=== PATIENT | female | born 1990 | race Two or more races ===

== ENCOUNTER 2017-02-09 21:25 | Inpatient (IN) | payer OTHER ==
[2017-02-09] MEDS ORDERED: BUTORPHANOL TARTRATE 1 MG/ML VIAL IVPB ONE (23:37)
[2017-02-09] MEDS ORDERED: PROMETHAZINE HCL 25 MG/1 ML VIAL IVPUSH ONE (23:37)
[2017-02-09] MEDS ORDERED: DEXTROSE 5%-LACTATED RINGERS 1,000 ML IV SCH (23:45)
--- NOTE | 2017-02-09 23:55 | HP ---
Past Medical History - Primary Care Physician PCP:: Caterina Torrez - Admission Chief Complaint: 26 yrs 39.6/7 weeks admitted in labor, SROM at 3.00pm, , onset of UC since 7.00pm History of Present Illness: PNC at , [facility]. Wt gain 42 lbs work Up : A Neg, Rhogam taken on 11/21/16, Rpr nr. Rubella pos, Hbsag neg, Quantiferon neg, 1 Hr Gtt 118, Hiv neg, GBS neg, gc/ct neg, pap NILM, Sickle neg, CF neg NT sreen & modified Sequential neg Seen by MFM serial growth sono reviewed. 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 Weeks Gestation by Dates: 40.2 ...EDC by Dates: 02/07/17 ...EDC by Sono: 02/10/17 (39.6) Heme/Onc: No: Sickle Cell Trait Infectious Disease: No: AIDS, HIV, STD's, Tuberculosis Psych: No: Addictions, Anxiety, Bipolar, Depression - Past Surgical History Past Surgical History: Yes: None Hx Myomectomy: No Hx Transabdominal Cerclage: No - Smoking History Smoking history: Never smoked - Alcohol/Substance Use Hx Alcohol Use: No History of Substance Use: reports: None Home Medications - Allergies Allergies/Adverse Reactions: Allergies Allergy/AdvReac Type Severity Reaction Status Date / Time No Known Allergies Allergy Verified 11/21/16 13:23 - Home Medications Home Medications: Ambulatory Orders NK [No Known Home Medication] 11/21/16 Physical Exam - Maternity Vital Signs: t 99.0 Selected Entries 02/09/17 23:00 Temperature 98.9 F Pulse Rate 105 H Blood Pressure 115/82 Weight 152 lb Constitutional: Yes: Well Nourished, Moderate Distress Eyes: Yes: WNL HENT: Yes: WNL, Normocephalic Neck: Yes: WNL, Trachea Midline Cardiovascular: Yes: WNL, Regular Rate and Rhythm Lungs: Clear to auscultation Breast(s): Yes: WNL - Abdominal Exam/OB Fundal Height: 40 Number of Fetuses: Single Presentation: Vertex Contractions: Yes Regularity: Irregular (4-5) Intensity: Moderate Heart Rate (range): 150-180 Heart Rate Location: [facility] Category: I Accelerations: Uniform Decelerations: None - Vaginal Exam/OB Vaginal Bleediing: Bloody Show Speculum Exam: No Dilatation (cm): 4- Effacement (%): 90 Amniotic Membrane Status: Ruptured (srom 15.00hr 02/09/2017) Nitrazine Test: Positive Amniotic Fluid: Yes: Blood Stained Presentation: Double Footling Breech (exam at 23.00hr 02/09/17) Station: -1 - Physical Exam Musculoskeletal: Yes: WNL Extremities: Yes: WNL. No: Calf Tenderness Edema: Yes Edema: LLE: 1+, RLE: 1+ Deep Tendon Reflex Grade: Normal +2 ...Motor Strength: WNL Psychiatric: Yes: WNL, Alert, Oriented - Labs Lab Results: Laboratory Tests 02/09/17 02/09/17 02/09/17 23:30 23:30 23:30 WBC 14.7 H D Hgb 13.5 Hct 40.2 Plt Count 155 Neutrophils % 84.0 H Lymphocytes % 9.1 D Monocytes % 6.6 Eosinophils % 0.2 D INR 0.99 PTT (Actin FS) 26.1 L Sodium 139 Potassium 4.0 Chloride 102 Carbon Dioxide 25 BUN 8 Creatinine 0.5 L D Random Glucose 83 Blood Type Antibody Screen 02/09/17 23:30 WBC Hgb Hct Plt Count Neutrophils % Lymphocytes % Monocytes % Eosinophils % INR PTT (Actin FS) Sodium Potassium Chloride Carbon Dioxide BUN Creatinine Random Glucose Blood Type A NEGATIVE Antibody Screen Negative Problem List - Problems (1) 40 weeks gestation of Code(s): Z3A.40 - 40 WEEKS GESTATION OF (2) Labor established Code(s): EQK9184 - (3) SROM (spontaneous rupture of membranes) Code(s): LNT7531 - Assessment/Plan 26 yrs , 40 weeks iup srom, in early labor , GBS neg Plan trial of labor for vag delivery stadol + phenergan for labor analgesia pitocin augmentation prn
[2017-02-10 00:06] LABS: BASOPHIL 0.1 % (0-2.0); EOSINOPHIL 0.2 % (0-4.5); MCH 29.5 pg (25.7-33.7); MCHC 33.7 g/dl (32.0-36.0); MEAN CELL VOLUME 87.5 fl (80-96); MEAN PLT VOLUME 9.8 fl (7.5-11.1); PLATELET COUNT 155 K/MM3 (134-434); RDW 13.4 % (11.6-15.6); WHITE BLOOD COUNT 14.7 K/mm3 (4.0-10.0)
[2017-02-10 00:18] LABS: INR 0.99 (0.82-1.09); PROTHROMBIN TIME (PATIENT) 10.9 SEC (9.98-11.88)
[2017-02-10 00:20] LABS: ACTIVATED PTT 26.1 SECONDS (26.9-34.4)
[2017-02-10 00:25] LABS: ANION GAP 12 (8-16); CALCIUM 8.6 mg/dL (8.5-10.1); CO2 25 mmol/L (21-32); CREATININE 0.5 mg/dL (0.55-1.02); GLUCOSE,RANDOM 83 mg/dL (74-106)
[2017-02-10] MEDS ORDERED: OXYTOCIN 15 UNITS/ LR 250 ML 250 ML IVPB SCH (02:00)
[2017-02-10 02:05] VITALS: BMI 27.8
[2017-02-10] MEDS: oxyCODONE HCL 5 MG TABLET PO PRN (04:00)
[2017-02-10] MEDS ORDERED: D5W-LR W/ 20 UNITS OXYTOCIN 1,000 ML IV SCH (04:00)
[2017-02-10 04:08] LABS: ARTERIAL BLD GAS O2 SATURATION 38.9 % (90-98.9); ARTERIAL BLOOD GAS BASE EXCESS 0.6 meq/l (-2-2); ARTERIAL BLOOD GAS HCO3 27.9 meq/L (22-26); ARTERIAL BLOOD GAS pH 7.31 (7.35-7.45)
--- NOTE | 2017-02-10 04:41 | PN ---
Progress Note, Labor Vaginal Exam #1 Labor Exam Date: 02/10/17 Labor Exam Time: 03:20 Heart Rate (range): 120-140 Dilatation: 10 Effacement (%): 100 Amniotic Membrane Status: Ruptured Presentation: Vertex/Position Station: +2 Remarks: fhr cat-2 uc q 3-4 min 1.00AM stadol + phenrgan iv given 2.00AM pitocin augmentation started 3.20 pt encouraged to push Selected Entries 02/10/17 02/10/17 02:00 03:00 Temperature 98.5 F Pulse Rate 90 81 Blood Pressure 109/76 108/66
--- NOTE | 2017-02-10 04:47 | PN ---
Delivery - Delivery Vaginal Delivery: No Problems, Spontaneous Type of Anesthesia: Local Episiotomy/Laceration: Midline (episitomy sutured in layers with chr catgut #2/ 0 . sutures proximal to anus pr exam mucosa & sphincter intact) EBL (cc): 450 (bladder cathetrized 50 ml urine) Delivery, Single - Stages of Labor Date 1st Stage Initiatied: 02/09/17 Time 1st Stage Initiated: 19:00 Date 2nd Stage Initiated: 02/10/17 Time 2nd Stage Initiated: 03:20 Date of Delivery: 02/10/17 Time of Delivery: 03:43 Date Placenta Delivered: 02/10/17 Time Placenta Delivered: 03:50 Placenta: Yes: Spontaneous, Uterine Exploration - Condition of Gender: Male Weight: 7 lb 6 oz Position: Left, OA Total Hours ROM (Hrs/Mins): 12hrs 50 min - 1 Minute Total Score: 9 5 Minutes Total Score: 9 - Additional Information: terminal light meconium noted at the time of delivery, oral & nasal suction done at perineum Remarks - Remarks Remarks: 26yrs G1Po 40weeks srom, in labor, gbs neg pnc at [address] [place] [address] Intrapartum iv stadol + phenrgan given for labor analgesia intrapartum course uneventful
[2017-02-10] MEDS ORDERED: BENZOCAINE 20% 57 GM BOTTLE TP PRN (04:52)
[2017-02-10] MEDS ORDERED: BISACODYL 10 MG SUPP.RECT RC PRN (04:52)
[2017-02-10] MEDS ORDERED: METHYLERGONOVINE MALEATE 0.2 MG/1 ML AMP IM PRN (04:52)
[2017-02-10] MEDS ORDERED: WITCH HAZEL 50% (TUCKS) 40 PAD/JAR PAD TP PRN (04:52)
[2017-02-10] MEDS ORDERED: BENZOCAINE 28 GM HEMORRHOIDAL OINTMENT TP PRN (04:52)
[2017-02-10 06:20] LABS: VENOUS PH 7.38 (7.32-7.42)
[2017-02-10 06:22] LABS: LPM/O2% 21%; PT. ON O2? no; TYPE OF O2 room air
[2017-02-10] MEDS: PRENATAL VITAMINS W/ FOLIC ACID TABLET (FP) PO SCH (09:12)
[2017-02-10] MEDS: FERROUS SO4 325 MG TABLET (FP) PO SCH ×2 (09:12→17:28)
[2017-02-10] MEDS: DOCUSATE SODIUM 100 MG CAPSULE (FP) PO SCH ×2 (14:26→22:23)
[2017-02-10] MEDS: ACETAMINOPHEN 325 MG TABLET (FP) PO PRN (15:20)
[2017-02-10] MEDS: IBUPROFEN 600 MG TABLET (FP) PO PRN (15:21)
--- NOTE | 2017-02-11 06:14 | PN ---
Post Progress Note Post Day: 1 Type of Delivery: Vital Signs: Vital Signs Temperature 98.4 F 02/11/17 02:00 Pulse Rate 99 H 02/11/17 02:00 Respiratory Rate 18 02/11/17 02:00 Blood Pressure 126/84 02/11/17 02:00 O2 Sat by Pulse Oximetry (%) 96 02/10/17 04:30 Breast Exam: Yes: Soft Uterus: Yes: Fundus Firm Abdomen/GI: Yes: Abdomen soft Lochia: Yes: Rubra Lochia, amount: Small Extremities: Yes: Calves non-tender Perineum: Yes: Intact Activity: Ambulating - Labs Labs: CBC WBC 14.7 K/mm3 (4.0-10.0) H D 02/09/17 23:30 RBC 4.59 M/mm3 (3.60-5.2) 02/09/17 23:30 Hgb 13.5 GM/dL (10.7-15.3) 02/09/17 23:30 Hct 40.2 % (32.4-45.2) 02/09/17 23:30 MCV 87.5 fl (80-96) 02/09/17 23:30 MCH 29.5 pg (25.7-33.7) 02/09/17 23:30 MCHC 33.7 g/dl (32.0-36.0) 02/09/17 23:30 RDW 13.4 % (11.6-15.6) 02/09/17 23:30 Plt Count 155 K/MM3 (134-434) 02/09/17 23:30 MPV 9.8 fl (7.5-11.1) 02/09/17 23:30 Neutrophils % 84.0 % (42.8-82.8) H 02/09/17 23:30 Lymphocytes % 9.1 % (8-40) D 02/09/17 23:30 Monocytes % 6.6 % (3.8-10.2) 02/09/17 23:30 Eosinophils % 0.2 % (0-4.5) D 02/09/17 23:30 Basophils % 0.1 % (0-2.0) 02/09/17 23:30 Assessment/Plan as above oob reg diet cont care
[2017-02-11] MEDS: DOCUSATE SODIUM 100 MG CAPSULE (FP) PO SCH ×3 (06:41→21:01)
[2017-02-11] MEDS: ACETAMINOPHEN 325 MG TABLET (FP) PO PRN ×2 (06:43→19:17)
[2017-02-11] MEDS: IBUPROFEN 600 MG TABLET (FP) PO PRN (06:43)
[2017-02-11] MEDS: FERROUS SO4 325 MG TABLET (FP) PO SCH ×2 (07:55→17:16)
[2017-02-11 08:24] LABS: BASOPHIL 0.4 % (0-2.0); EOSINOPHIL 1.2 % (0-4.5); MCH 28.9 pg (25.7-33.7); MCHC 33.4 g/dl (32.0-36.0); MEAN CELL VOLUME 86.6 fl (80-96); MEAN PLT VOLUME 9.2 fl (7.5-11.1); NEUTROPHILS 80.6 % (42.8-82.8); PLATELET COUNT 140 K/MM3 (134-434); RDW 13.2 % (11.6-15.6); WHITE BLOOD COUNT 13.9 K/mm3 (4.0-10.0)
[2017-02-11] MEDS ORDERED: DIPHTH,PERTUSS(ACELL),TET 0.5 ML DISP.SYRIN IM ONE (10:00)
[2017-02-11] MEDS: PRENATAL VITAMINS W/ FOLIC ACID TABLET (FP) PO SCH (10:13)
[2017-02-11] MEDS: oxyCODONE HCL 5 MG TABLET PO PRN (19:17)
[2017-02-11] MEDS ORDERED: SENNOSIDES/DOCUSATE COMBO (SENNA PLUS) TABLET (UD) PO PRN (22:00)
[2017-02-12] MEDS: DOCUSATE SODIUM 100 MG CAPSULE (FP) PO SCH (06:30)
[2017-02-12] MEDS: FERROUS SO4 325 MG TABLET (FP) PO SCH (09:09)
[2017-02-12] MEDS: PRENATAL VITAMINS W/ FOLIC ACID TABLET (FP) PO SCH (09:09)
--- NOTE | 2017-02-12 09:48 | DS ---
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: Vital Signs Temperature 97.9 F 02/11/17 21:00 Pulse Rate 105 H 02/11/17 21:00 Respiratory Rate 20 02/11/17 21:00 Blood Pressure 124/79 02/11/17 21:00 O2 Sat by Pulse Oximetry (%) 96 02/10/17 04:30 Constitutional: Yes: Well Nourished Eyes: Yes: WNL HENT: Yes: WNL Neck: Yes: WNL Cardiovascular: Yes: WNL Respiratory: Yes: WNL Gastrointestinal: Yes: WNL ...Rectal Exam: Yes: WNL, Sphincter Tone Normal, Other (bm done) ....Post : Yes: Uterus firm, Uterus non-tender, Moderate lochia rubra ( perineum intact, epi wound healing , suture proximal to anus) Breast(s): Yes: WNL (BF, not engorged) Musculoskeletal: Yes: WNL Extremities: Yes: WNL. No: Calf Tenderness Edema: LLE: Trace, RLE: Trace Neurological: Yes: WNL, Alert, Oriented ...Motor Strength: WNL Psychiatric: Yes: WNL, Alert, Oriented Labs: CBC, BMP 02/11/17 07:50 02/09/17 23:30 Delivery - Delivery Vaginal Delivery: No Problems, Spontaneous Type of Anesthesia: Local Episiotomy/Laceration: Midline EBL (cc): 450 Delivery, Single - Stages of Labor Date 1st Stage Initiatied: 02/09/17 Time 1st Stage Initiated: 19:00 Date 2nd Stage Initiated: 02/10/17 Time 2nd Stage Initiated: 03:20 Date of Delivery: 02/10/17 Time of Delivery: 03:43 Time Placenta Delivered: 03:50 Placenta: Yes: Spontaneous, Uterine Exploration - 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 Intrapartum iv stadol + phenrgan given for labor analgesia intrapartum course uneventful post course explained pericare explained, avoid constipation discharge today Discharge Summary Reason For Visit: LABOR ADMIT Current Active Problems 40 weeks gestation of (Acute) Labor established (Acute) Normal spontaneous vaginal delivery (Acute) SROM (spontaneous rupture of membranes) (Acute) Condition: Stable - Instructions Diet, Activity, Other Instructions: Post Instructions DIET: Continue good diet high in protein, calcium, and iron rich foods. Drink at least eight (8) glasses of water daily in addition to other fluids. ct Regular diet MEDICATIONS: Continue vitamins and iron as previously directed. Motrin and Tylenol may be taken for minor discomfort. ACTIVITY: Mild to moderate exercise may be started in two (2) weeks. Take frequent rest periods. Resume normal activity after six (6) week check up. WOUND CARE OF OPERATIVE SITE: Continue use of perineal bottle until vaginal discharge stops. Keep area clean. Shower daily. Keep abdominal wound dry. Report any drainage or redness to physician. Tub baths, tampons and douches are not permitted for 6 weeks. Sitz Bath tid prn for pain Avoid constipation ct Breast feeding & or Bottle feeding BREAST CARE: (For those that are not ): If engorgement occurs: Wear tight fitting bra. Take Tylenol or Motrin for pain. Apply cold packs (ice in bags to each breast ) FAMILY PLANNING: There are many control alternatives to pursue and they should be discussed at your first office visit. You may resume sexual activity after your six (6) week check up. (Remember, breast feeding is not a contraceptive) NEXT PHYSICIAN APPOINTMENT: Be certain to call for a four (4) week appointment, unless otherwise directed. Call Clinic or got to Emergency Dept if you have any of the following: Heavy vaginal bleeding Painful urination Leg pain Unusual odor noted to vaginal bleeding High fever Red streaking noted on breast Referrals: Caterina Torrez MD [Staff Physician] - Disposition: HOME - Home Medications Comprehensive Discharge Medication List: Ambulatory Orders Acetaminophen [Tylenol .Regular Strength -] 650 mg PO Q3H PRN #0 tablet Benzocaine [Americaine 20% [place] -] 1 spray TP PRN PRN #0 bottle 02/12/17 Docusate Sodium [Colace -] 100 mg PO TID #60 cap 02/12/17 Ferrous Sulfate [Feosol] 325 mg PO DAILY #30 tab 02/12/17 Ibuprofen [Motrin -] 600 mg PO Q4H PRN #30 tablet 02/12/17 Vitamins (Sjr) - 1 tab PO DAILY #30 tablet 02/12/17 Witch Laly 50% ([place]) [Tucks Pads -] 1 pad TP PRN PRN #0 pad 02/12/17
[2017-02-12 10:38] VITALS: BP 119/80; PULSE 100; TEMP 98
[2017-02-12] MEDS: ACETAMINOPHEN 325 MG TABLET (FP) PO PRN (11:06)
[2017-02-12] MEDS: IBUPROFEN 600 MG TABLET (FP) PO PRN (11:07)
== END 2017-02-12 13:30 | disposition home or self-care (01) | DRG 560 ==
LOC: JDEL 21:25 → JERBED 23:00 → JLDR 23:00 → UNDOADMIN 23:00 → J3W 02-10 05:45
PROVIDERS: ADMIT Obstetrics & Gynecology; ATTEND Obstetrics & Gynecology
PROC: 10E0XZZ Delivery of Products of Conception, External Approach (ICD-10-PCS; principal; 2017-02-10)
PROC: 0W8NXZZ Division of Female Perineum, External Approach (ICD-10-PCS; 2017-02-10)
PROC: 3E0334Z Introduction of Serum, Toxoid and Vaccine into Peripheral Vein, Percutaneous Approach (ICD-10-PCS; 2017-02-10)
DX: O80 Encounter for full-term uncomplicated delivery (principal); Z3A.40 40 weeks gestation of pregnancy; O26.893 Other specified pregnancy related conditions, third trimester; Z67.91 Unspecified blood type, Rh negative; Z37.0 Single live birth
CPT/HCPCS: 36415; 36600; 59409; 80048; 82803; 85025; 85461; 85610; 85730; 86593; 86850; 86900; 86901; 86999; 90715

== ENCOUNTER 2019-05-22 09:20 | Emergency (ER) | payer OTHER ==
[2019-05-22 09:31] VITALS: BP 123/80; TEMP 99.5; BMI 25.6
[2019-05-22] MEDS ORDERED: IBUPROFEN 400 MG TABLET (FP) PO ONE ×2 (09:40→09:45)
--- NOTE | 2019-05-22 09:52 | PDOC ---
History of Present Illness - General Chief Complaint: Sore Throat Stated Complaint: SORE THROAT Time Seen by Provider: 05/22/19 09:28 History Source: Patient - History of Present Illness Timing/Duration: reports: yesterday Past History - Past Medical History Allergies/Adverse Reactions: Allergies Allergy/AdvReac Type Severity Reaction Status Date / Time No Known Allergies Allergy Verified 05/22/19 09:28 Home Medications: Ambulatory Orders Acetaminophen [Tylenol .Regular Strength -] 650 mg PO Q3H PRN #0 tablet Benzocaine [Americaine 20% [place] -] 1 spray TP PRN PRN #0 bottle 02/12/17 Docusate Sodium [Colace -] 100 mg PO TID #60 cap 02/12/17 Ferrous Sulfate [Feosol] 325 mg PO DAILY #30 tab 02/12/17 Ibuprofen [Motrin -] 600 mg PO Q4H PRN #30 tablet 02/12/17 Vitamins (Sjr) - 1 tab PO DAILY #30 tablet 02/12/17 Witch Laly 50% (Tucks) [Tucks Pads -] 1 pad TP PRN PRN #0 pad 02/12/17 Ibuprofen [Motrin -] 600 mg PO QID #28 tablet 05/22/19 Oseltamivir Phosphate [Tamiflu] 75 mg PO BID #10 capsule 05/22/19 Asthma: No Cancer: No Cardiac Disorders: No COPD: No Diabetes: No HTN: No Seizures: No Thyroid Disease: No - Psycho Social/Smoking Cessation Hx Smoking History: Never smoked Hx Alcohol Use: No Drug/Substance Use Hx: No Hx Substance Use Treatment: No Review of Systems - Review of Systems Constitutional: Yes: Fever, Malaise HEENTM: Yes: Throat Pain. No: Ear Pain Respiratory: No: Cough, Shortness of Breath Cardiac (ROS): No: Chest Pain ABD/GI: No: Diarrhea, Nausea, Vomiting *Physical Exam - Vital Signs Last Vital Signs Temp Pulse Resp BP Pulse Ox 99.5 F 132 H 18 123/80 100 05/22/19 09:26 05/22/19 09:26 05/22/19 09:26 05/22/19 09:26 05/22/19 09:26 - Physical Exam General Appearance: Yes: Appropriately Dressed HEENT: positive: Normal ENT Inspection, Normal Voice, TMs Normal, Pharynx Normal. negative: Scleral Icterus (R), Scleral Icterus (L), Sinus Tenderness Neck: positive: Supple. negative: Lymphadenopathy (R), Lymphadenopathy (L) Respiratory/Chest: positive: Lungs Clear, Normal Breath Sounds. negative: Respiratory Distress Cardiovascular: positive: S1, S2, Tachycardia Gastrointestinal/Abdominal: positive: Soft. negative: Tender Integumentary: positive: Dry, Warm Neurologic: positive: Fully Oriented, Alert, Normal Mood/Affect Medical Decision Making - Medical Decision Making 05/22/19 09:49 29-year-old female w/ no significant history, here with sore throat with headache, body aches, subjective fever and malaise since yesterday. No cough shortness of breath, CP, neck pain, photophobia, dizziness, cough, chest pain, nausea, vomiting, diarrhea. No known sick contacts or recent travel. Has not taken anything for her symptoms see exam Viral syndrome R/o flu and strep, no e/o meningismus Tachy to 132 and bharat unwell -motrin for pain 05/22/19 10:57 Patient positive for flu A. Rpt HR 109. Will dc with supportive treatment. Reasons to return discussed with patient Discharge - Discharge Information Problems reviewed: Yes Clinical Impression/Diagnosis: Influenza A Condition: Stable Disposition: HOME - Additional Discharge Information Prescriptions: Ibuprofen [Motrin -] 600 mg PO QID #28 tablet Oseltamivir Phosphate [Tamiflu] 75 mg PO BID #10 capsule - Follow up/Referral - Patient Discharge Instructions Patient Printed Discharge Instructions: Influenza Additional Instructions: You have the flu which is a virus and can take couple of days to week to resolve. Rest drink fluids and take medications as prescribed. This is contagious - Post Discharge Activity Work/Back to School Note: Back to Work
[2019-05-22 11:10] VITALS: PULSE 109
== END 2019-05-22 11:10 | disposition home or self-care (01) ==
LOC: JERFT 09:20
DX: J09.X2 Influenza due to identified novel influenza A virus with other respiratory manifestations (principal)
CPT/HCPCS: 84703; 87070; 87077; 87804; 87880; 99282-25